=== PATIENT | male | born 1970 | race Hispanic/Latino ===

== ENCOUNTER 2024-07-02 06:47 | Day surgery (SDC) | payer OTHER, SELFPAY ==
[2024-06-30 14:15] VITALS: BP 161/93; PULSE 84; RESP 16; TEMP 97.7
[2024-06-30 14:15] LABS: BASOPHILS # (AUTO) 0.05 K/uL (0.00-0.20); BASOPHILS % (AUTO) 0.5 % (0.0-5.0); EOSINOPHILS # (AUTO) 0.39 K/uL (0.00-0.70); EOSINOPHILS % (AUTO) 3.9 % (0.0-8.0); HEMATOCRIT 42.7 % (42-54); IMMATURE GRANULOCYTE ABSOLUTE 0.03 K/uL (0-1); LYMPHOCYTES # (AUTO) 2.2 K/uL (1.0-4.8); LYMPHOCYTES % (AUTO) 22.4 % (21.0-51.0); MEAN CORPUSCULAR HEMOGLOBIN 30.4 pg (27.0-33.0); MEAN CORPUSCULAR HGB CONC 33.3 g/dL (32.0-36.0); MEAN CORPUSCULAR VOLUME 91.4 fL (79-99); MONOCYTES % (AUTO) 9.6 % (3.0-13.0); NEUTROPHILS # (AUTO) 6.3 K/uL (1.8-7.7); NEUTROPHILS % (AUTO) 63.3 % (40.0-77.0); PLATELET COUNT (AUTO) 210 K/uL (130-400); RED BLOOD CELL COUNT(AUTO) 4.67 MIL/uL (4.50-6.20); RED CELL DISTRIBUTION WIDTH 13.9 % (11.0-15.5); WHITE BLOOD COUNT (AUTO) 9.9 K/uL (4.8-10.8)
[2024-06-30 14:30] LABS: CREATININE 1.1 mg/dL (0.5-1.3); POTASSIUM 3.9 mmol/L (3.5-5.1)
[2024-06-30 14:37] LABS: INR 1.01 (0.85-1.15); PROTHROMBIN TIME 10.9 SEC (9.6-11.6)
[2024-06-30 14:38] LABS: PARTIAL THROMBOPLASTIN TIME 29.2 SEC (26.3-35.5)
[2024-07-02] VITALS (19 sets, daily range): BP systolic 125–173; BP diastolic 69–111; PULSE 76–105; RESP 10–22; TEMP 97.1–97.5
[~2024-07-02] VITALS: Ht 180.3 cm; Wt 94.4 kg
[~2024-07-02 06:47] MED LIST: ATOR40TA69 PO; GLIM2TAB30 PO; LOSA100T59 PO
[2024-07-02] MEDS: 0.9%NACL 1000ML 1,000 ML IV ONE (08:10)
[2024-07-02] MEDS ORDERED: dexaMETHasone SOD PHOSPHATE 10MG/ML 1ML VIAL ONE (08:15)
[2024-07-02] MEDS ORDERED: LIDOCAINE PF 100MG/5ML (2%) SYRINGE 5ML ONE (08:15)
[2024-07-02] MEDS ORDERED: proPOFol 10 MG/ML 20ML VIAL IV ONE (08:16)
[2024-07-02] MEDS ORDERED: ondanSETRON 4MG INJ ONE (08:16)
[2024-07-02] MEDS ORDERED: MIDAZOLAM HCL 1 MG/ML 2ML VIAL ONE (08:16)
[2024-07-02] MEDS ORDERED: FENTanyl CITRate PF 50 MCG/1 ML 2ML VIAL ONE ×2 (08:16→09:35)
[2024-07-02] MEDS: ceFAZolin SODIUM 2 GM VIAL ONE (08:55)
[2024-07-02] MEDS ORDERED: ePHEDrine SULFate 50 MG/ML AMPULE ONE (09:07)
[2024-07-02] MEDS: BUPIvacaine/PF 0.25% 30ML VIAL IJ ONE (09:12)
[2024-07-02] MEDS ORDERED: acetaMINOPHEN 1,000 MG/100 ML VIAL IV ONE (09:38)
[2024-07-02] MEDS: MEPERIDINE-PF 25 MG/ML SYG ONE ×2 (11:57→12:09)
[2024-07-02] MEDS: FENTanyl CITRate PF 50 MCG/1 ML 2ML VIAL ONE ×2 (12:17→12:29)
== END 2024-07-02 13:26 | disposition home or self-care (01) ==
LOC: DAH 06:47
PROVIDERS: ATTEND Podiatrist
DX: S82.842A Displaced bimalleolar fracture of left lower leg, initial encounter for closed fracture (principal); I10 Essential (primary) hypertension; E11.9 Type 2 diabetes mellitus without complications; Z79.01 Long term (current) use of anticoagulants; Z79.84 Long term (current) use of oral hypoglycemic drugs; Z79.899 Other long term (current) drug therapy; X58.XXXA Exposure to other specified factors, initial encounter; Y93.89 Activity, other specified; Y92.89 Other specified places as the place of occurrence of the external cause; Y99.8 Other external cause status
CPT/HCPCS: 80048; 85025; 85610; 85730; 36415; 27814; 82948 ×2; 73600; C1713 ×6; A4663; J7030 ×2; J3010 ×4; J1100; J0665; J2001; J3490; J2250; J2704; J2405; J2175 ×2; J0690; A6446; A4649 ×3; A4930; A4215; A4223; A4222; A4221; A6450